=== PATIENT | female | born 1990 | race Caucasian/White ===

== ENCOUNTER 2016-10-23 12:14 | Emergency (ER) | payer OTHER ==
[~2016-10-23] VITALS: Ht 154.9 cm; Wt 51.8 kg
[2016-10-23 12:15] VITALS: BP 168/94; PULSE 75; RESP 16; O2SAT 99
--- NOTE | 2016-10-23 12:24 | ED.REPORT ---
HPI-Hand Prob/Inj Date of Service Oct 23, 2016 ED Provider: Juan Mora MD Pt is a healthy 26 year old female presenting to the ED complaining of a laceration to tip of the left index finger onset just prior to arrival when she was opening a shower curtain soledad. Her hand was cut on the metal part of the shower curtain soledad. She denies any other symptoms at this time. Nursing Notes Stated Complaint: LACERATION ON LEFT HAND Chief Complaint: Laceration Nursing Notes Reviewed: Yes Allergies: Coded Allergies: codeine (Verified Allergy, Severe, feels out of body experience, 10/23/16) General Time Seen by Provider: 12:28 Chief Complaint Hand pain left Hx Obtained From: Patient Arrived By: Walk-in Onset Occurred: Just prior to arrival Symptom Duration: Since onset Location: Left Hand: : Finger... (Index) Quality: Painful Severity: Current: Mild Severity: Maximum: Mild Immunizations: All up to date Recent Healthcare: No recent doctor visit, No recent hospitalization Similar Sx Previous: No Past Medical History Past Medical History None reported Past Surgical History None reported Smoking History Never Smoker Social History Alcohol Use: "Social" Drug Use: Denies drug use Ambulatory Status Independent Review of Systems Review of Systems Note: Cut to left index finger Constitutional: Denies: Fever, Weakness - generalized Complete sys rev & neg: except as marked. Respiratory: Denies: Shortness of breath GI: Denies: Vomiting Physical Exam Initial Vital Signs Vital Signs (First) Date Time Temp Pulse Resp B/P Pulse Ox O2 Delivery O2 Flow Rate FiO2 10/23/16 12:15 37.3 75 16 168/94 99 Room Air Initial VS: Reviewed General/Constitutional: Well-developed, Well-nourished Head / Eyes: Atraumatic, Normocephalic, PERRL ENT: Mucous membranes moist, Conjunctiva normal, No scleral icterus Respiratory: No respiratory distress Abdomen / GI: No distention Extremities: Vascular intact, Neuro intact, No swelling, No tenderness Skin: Warm, Dry, No cyanosis Neurologic: Alert, Oriented, Nonfocal Psychiatric: Mood/affect normal, Behavior normal, Normal thought content Wrist / Hand: Atraumatic, Inspection NL, Full range of motion, No deformity, Neurologic intact, Vascular intact Laceration to left index finger. No warmth or fluctuance. Procedures Laceration Management Time: 12:39 Procedure Performed by: ED physician Consent / Setup / Site Prep: Consent from patient, Time-out performed, Hand hygiene observed, Stand sterile technique Location of Wound: Left index finger Digit Involved: Index finger left Repair Skin: Dermabond Post-Procedure / Complications: Antibiotic oint applied, Dressing applied, No complications, Condition improved, Tolerated procedure well, Patient stable Re-Eval/Medical Decision Re-Evaluation/Progress : Time of Eval: 12:39 Patient Status: Condition improved Re-Evaluation/Progress Note: Performed laceration management. Counseled Regarding: Diagnosis, Lab results, Need for follow-up, When/why to return to ED Discharge & Departure Primary Impression: Laceration Disposition: Home Discharge Condition All VS Reviewed: Yes Condition: Improved Patient Instructions: Finger Laceration (ED) Additional Instructions: We used skin glue, Steri-Strips and a bandage and a splint to help stabilize that wound so that it will heal on its own. If you have continued bleeding, I recommended direct pressure for 15-20 minutes to see if you can get it to stop on its own. The Steri-Strips will fall off over the next few days which is fine. The glue will wear off over the next week. Be gentle with the finger over the next few days to allow the skin to heal properly. Follow-up if you have any other concerns or questions. Referrals: [facility] Scribe Attestation Portions of this note were transcribed by Ashley Georges. I, Dr. Mora personally performed the history, physical exam and medical decision-making; I reviewed and confirmed the accuracy of the information in the transcribed note. Signed by: Feng Alexis, 10/23/16 at 1254. copies to: [facility] Juan Mora MD Oct 23, 2016 12:24 ASHLEY GEORGES Oct 23, 2016 12:33
[2016-10-23 12:51] VITALS: BP 168/94; PULSE 75; RESP 16; O2SAT 99
== END 2016-10-23 12:51 | disposition home or self-care (01) ==
LOC: SED 12:14
DX: S61.211A Laceration without foreign body of left index finger without damage to nail, initial encounter (principal); W26.8XXA Contact with other sharp object(s), not elsewhere classified, initial encounter; Y93.89 Activity, other specified; Y92.89 Other specified places as the place of occurrence of the external cause; Y99.8 Other external cause status; Z88.5 Allergy status to narcotic agent

== ENCOUNTER 2016-11-19 00:55 | Emergency (ER) | payer OTHER ==
[~2016-11-19] VITALS: Ht 154.9 cm; Wt 50.9 kg
[2016-11-19 00:58] VITALS: BP 136/86; PULSE 103; RESP 16; O2SAT 100
--- NOTE | 2016-11-19 01:11 | ED.REPORT ---
HPI-Psychiatric Illness Date of Service Nov 19, 2016 ED Provider: Dr. Quick Pt is a 26 y/o female w/ a hx of anxiety presenting to the ED c/o increased anxiety for the past 2 weeks. She states for the past 5 years she has intermittent periods lasting months of high anxiety and panic attacks. Her anxiety manifests firsts physically and then emotionally. For the past 2 weeks she is experiencing these anxiety attacks several times each day. She was prescribed Sertraline 2 years ago which worked at first but ended up making her anxiety worse. She has a prescription for 0.25 mg Xanax as needed and states she uses it twice each year. Today, the patient drank about 6 shots of alcohol at 15:00 and then vomited and states this is causing her increased anxiety today. She decided to not take Xanax tonight because she was told to not take it after drinking alcohol. She came to the ED today to discuss possibilities of dealing with her anxiety in the presence of alcohol tonight. Nursing Notes Stated Complaint: ANXIETY, DEHYDRATION Chief Complaint: Psychiatric Complaint Nursing Notes Reviewed: Yes Allergies: Coded Allergies: codeine (Verified Allergy, Severe, feels out of body experience, 11/19/16) Scheduled PRN Hydroxyzine Pamoate (HydrOXYzine Pamoate) 25 Mg Capsule 25 MG PO TID PRN PRN For Anxiety General Time Seen by MD: 01:10 Chief Complaint Anxious Hx Obtained From: Patient Arrived By: Walk-in Onset Occurred: 5 - 8 hours ago Symptom Duration: Since onset Progression Since Onset: Constant Severity: Current: No pain currently Severity: Maximum: No pain Recent Healthcare: Previous diagnosis Similar Sx Previous: Yes Risk-Psychiatric Illness Suicide Risk Stratification RF Statements: Risk factors N/A Past Medical History Past Medical History None reported Past Surgical History None reported Smoking History Never Smoker Social History Alcohol Use: "Social" Drug Use: Denies drug use Ambulatory Status Independent Review of Systems Psychiatric: Reports: Anxiety, Denies: Agitation, Change mental status, Confusion, Delusional, Depression, Hallucinations, auditory, Hallucinations, visual, Homicidal ideation, Hostile, Suicidal ideation, Unable to control self Complete sys rev & neg: except as marked. Physical Exam Initial Vital Signs Vital Signs (First) Date Time Temp Pulse Resp B/P Pulse Ox O2 Delivery O2 Flow Rate FiO2 11/19/16 00:58 36.9 103 16 136/86 100 Room Air Initial VS: Reviewed, Vital signs abnormal Head / Eyes: Atraumatic, Normocephalic ENT: Mucous membranes moist, Conjunctiva normal, No scleral icterus Neck: Supple, Full range of motion Respiratory: Breath sounds normal, Clear to auscultation, No respiratory distress Cardiovascular: Regular rate & rhythm, Heart sounds normal, Intact distal pulses Abdomen / GI: Soft Extremities: Vascular intact, Neuro intact, No swelling Skin: Warm, Dry, No cyanosis General/Constitutional: Awake, Alert, No acute distress, Cooperative, Not toxic appearing Behavior: Positive: Anxious (mild), Negative: Appears intoxicated Appearance / Presentation: Negative: Intoxicated Frequent sighing Neurologic: Oriented X3, Speech NL, No motor deficits, Memory NL Psychiatric: Mood NL, Not suicidal, Not homicidal, No hallucinations, Cognitive function NL, Judgment/insight NL, Thought content NL Abnormal Mood/Affect: Positive: Anxious (mild) Re-Eval/Medical Decision Med Decision/Clinical Course 26-year-old female with a history of anxiety/panic attacks. She has had a prescription for alprazolam but uses it very infrequently. Her situation tonight was made worse by drinking alcohol, something she does not normally do. She was given hydroxyzine with good relief of her symptoms. She will be sent home with a prescription of hydroxyzine as a trial. Source of Hx: Old records Re-Evaluation/Progress : Time of Eval: 01:53 Re-Evaluation/Progress Note: Pt rechecked. Feeling much better, less anxious. Informed pt of plan for discharge. Pt understands and agrees with plan for discharge. F/U instructions and RTER warnings given. All questions addressed. Counseled Regarding: Diagnosis, Need for follow-up, When/why to return to ED Discharge & Departure Impression: Primary Impression: Anxiety )( Condition at Discharge: No danger to self, No danger to others, No suicidal ideation, No homicidal ideation Disposition: Home Discharge Condition All VS Reviewed: Yes Condition: Improved Patient Instructions: Anxiety (ED) Additional Instructions: Hydroxyzine pamoate 25 mg by mouth 3 times a day when necessary anxiety. At times when you are having a lot of problems with anxiety, you can take this on a regular basis. At other times you can take it as needed for an anxiety attack. Follow-up with your regular doctor for refills if needed. Referrals: [facility] (PCP) Scribe Attestation Portions of this note were transcribed by Renato Valencia. I, Dr. Quick personally performed the history, physical exam and medical decision-making; I reviewed and confirmed the accuracy of the information in the transcribed note. Steven Quick MD Nov 19, 2016 01:11 RENATO VALENCIA Nov 19, 2016 01:20
[2016-11-19] MEDS ORDERED: hydrOXYzine Pamoate 25 mg Capsule PO ONE (01:20)
[2016-11-19] MEDS ORDERED: HYDR-3797 PO (02:00)
[2016-11-19 02:13] VITALS: BP 133/79; PULSE 80; RESP 16; O2SAT 100
== END 2016-11-19 02:10 | disposition home or self-care (01) ==
LOC: SED 00:55
DX: F41.9 Anxiety disorder, unspecified (principal); R11.10 Vomiting, unspecified; Z88.5 Allergy status to narcotic agent
CPT/HCPCS: 99283; Q0177